=== PATIENT | male | born 1955 | race Caucasian/White ===

== ENCOUNTER 2017-02-10 10:09 | Emergency (ER) ==
--- NOTE | 2017-02-10 10:22 | ED.PDOC ---
General ED Provider: Dr. CHAN MATTA Chief Complaint: Hand Laceration Stated Complaint: arrow burseted, and cut left forearm. Time Seen by Physician: 10:19 Mode of Arrival: Walk-In Information Source: Patient Nursing and Triage Documentation Reviewed and Agree: Yes Skin Complaint Exam - Laceration/Upper Ext. Complaint/Exam Location of Injury: Left, Forearm Mechanism of Injury: Laceration, Puncture Symptoms Are: Still present Initial Severity: Mild Current Severity: Mild Aggravating: Movement Alleviating: None Associated Signs and Symptoms: Denies: Fever, Chills, Erythema, Numbness, Tingling Differential Diagnoses: Foreign Body, Laceration Review of Systems - Review Of Systems Constitutional: Reports: No symptoms Eyes: Reports: No symptoms Ears, Nose, Mouth, Throat: Reports: No symptoms Respiratory: Reports: No symptoms Cardiac: Reports: No symptoms GI: Reports: No symptoms : Reports: No symptoms Musculoskeletal: Reports: No symptoms Skin: Reports: No symptoms Neurological: Reports: No symptoms Endocrine: Reports: No symptoms Hematologic/Lymphatic: Reports: No symptoms All Other Systems: Reviewed and Negative Past Medical History - Past Medical History Previously Healthy: Yes Endocrine: Reports: None Cardiovascular: Reports: Hypertension Respiratory: Reports: None Hematological: Reports: None Gastrointestinal: Reports: None Genitourinary: Reports: None Neuro/Psych: Reports: None Musculoskeletal: Reports: None Cancer: Reports: None - Surgical History General Surgical History: Reports: Orthopedic (cts rt) - Family History Family History: Reports: None - Social History Smoking Status: Former smoker Hx Substance Use: No Alcohol Screening: Occasionally - Immunizations Tetanus Shot up to Date: No Physical Exam - Physical Exam Appearance: Well-appearing, No pain distress, Well-nourished Eyes: OUMOU, EOMI, Conjunctiva clear ENT: Ears normal, Nose normal, Oropharynx normal Respiratory: Airway patent, Breath sounds clear, Breath sounds equal, Respirations nonlabored Cardiovascular: RRR, Pulses normal, No rub, No murmur GI/: Soft, Nontender, No masses, Bowel sounds normal, No Organomegaly Musculoskeletal: Normal strength, ROM intact, No edema, No calf tenderness Skin: Warm, Dry, Normal color Neurological: Sensation intact, Motor intact, Reflexes intact, Cranial nerves intact, Alert, Oriented Psychiatric: Affect appropriate, Mood appropriate Critical Care Note - Critical Care Note Total Time (mins): 0 Course - Course Vital Signs: Temp Pulse Resp BP Pulse Ox 02/10/17 10:14 97.2 F L 58 L 16 142/91 H 95 Departure - Departure Time of Disposition: 10:23 Disposition: HOME SELF-CARE Discharge Problem: Forearm laceration Qualifiers: Encounter type: initial encounter Laterality: left Qualifier Code: (S51.812A) Laceration without foreign body of left forearm, initial encounter Instructions: Laceration (ED) Condition: Stable Pt referred to PMD for follow-up: No Additional Instructions: keep wound area clean Tylenol prn Allergies/Adverse Reactions: Allergies No Known Allergies Allergy (Unverified 02/10/17 10:21) Home Medications: Ambulatory Orders 1 [No Reported Medications] 02/10/17 Disposition Discussed With: Patient, Family
[2017-02-10 10:27] VITALS: BP 142/91; TEMP 97.2; BMI 30.7
[2017-02-10] MEDS ORDERED: BOOSTRIX IM ONE (10:27)
== END 2017-02-10 11:41 | disposition home or self-care (01) ==
LOC: ED 10:09
DX: S51.812A Laceration without foreign body of left forearm, initial encounter (principal); W26.8XXA Contact with other sharp object(s), not elsewhere classified, initial encounter
CPT/HCPCS: 90471; 99282